=== PATIENT | male | born 1995 | race Caucasian/White ===

== ENCOUNTER 2016-12-09 16:33 | Emergency (ER) | payer OTHER ==
[2016-12-09] MEDS ORDERED: NS 1,000 ML IV ONE (17:24)
[2016-12-09] MEDS ORDERED: HYDROmorphONE/DILAUDID 1 MG/ML INJ IVP ONE (17:24)
[2016-12-09] MEDS ORDERED: ONDANSETRON 4 MG/2 ML VIAL IVP ONE (17:24)
[2016-12-09] MEDS ORDERED: ACETAMINOPHEN 500 MG TAB PO ONE (17:25)
--- NOTE | 2016-12-09 17:30 | EDPHY ---
H & P Stated Complaint: Jones teeth out this morning;also has sinus infection;?sent for IV antibx Time Seen by Provider: 12/09/16 16:57 HPI/ROS: CHIEF COMPLAINT: Facial pain HISTORY OF PRESENT ILLNESS: The patient is a 21-year-old man who is sent from his primary care doctor's office. He states that he has had a head cold for the last 2 weeks that coalesced into significant right frontal facial pain 1 week ago. He then went johnny diving on Tuesday and had a big flush of water into his sinuses that increased his pain severely. He then saw a dentist this morning at 7:00 a.m. who removed his four wisdom teeth. He presented to Dr. Parker is office complaining of severe pain. He had a low-grade fever. Dr. Olson sent him here for pain control and antibiotics and CT scan. He was given amoxicillin and Vicodin by his dentist but he has not yet taken it. REVIEW OF SYSTEMS: Constitutional: denies: chills, fever, recent illness, recent injury EENTM: See HPI Respiratory: denies: cough, shortness of breath Cardiac: denies: chest pain, irregular heart rate, lightheadedness, palpitations Gastrointestinal/Abdominal: denies: abdominal pain, diarrhea, nausea, vomiting, blood streaked stools Genitourinary: denies: dysuria, frequency, hematuria, pain Musculoskeletal: denies: joint pain, muscle pain Skin: denies: lesions, rash, jaundice, bruising Neurological: denies: headache, numbness, paresthesia, tingling, dizziness, weakness Hematologic/Lymphatic: denies: blood clots, easy bleeding, easy bruising Immunologic/allergic: denies: HIV/AIDS, transplant EXAM: GENERAL: Well-appearing, well-nourished and in no acute distress. HEAD: Atraumatic, normocephalic. EYES: Pupils equal round and reactive to light, extraocular movements intact, sclera anicteric, conjunctiva are normal. ENT: Mild facial swelling, right sinus tenderness, TMs normal, nares patent, minimal bleeding from wisdom tooth removal . Moist mucous membranes. NECK: Normal range of motion, supple without lymphadenopathy or JVD. LUNGS: Breath sounds clear to auscultation bilaterally and equal. No wheezes rales or rhonchi. HEART: Regular rate and rhythm without murmurs, rubs or gallops. ABDOMEN: Soft, nontender, normoactive bowel sounds. No guarding, no rebound. No masses appreciated. BACK: No CVA tenderness, no spinal tenderness, step-offs or deformities EXTREMITIES: Normal range of motion, no pitting or edema. No clubbing or cyanosis. NEUROLOGICAL: Cranial nerves II through XII grossly intact. Normal speech, normal gait. 5/5 strength, normal movement in all extremities, normal sensation PSYCH: Normal mood, normal affect. SKIN: Warm, dry, normal turgor, no visible rashes or lesions. Source: Patient Exam Limitations: No limitations - Personal History Current Tetanus Diphtheria and Acellular Pertussis (TDAP): Yes - Medical/Surgical History Hx Asthma: No Hx Chronic Respiratory Disease: No Hx Diabetes: No Hx Cardiac Disease: No Hx Renal Disease: No Hx Cirrhosis: No Hx Alcoholism: No - Family History Significant Family History: No pertinent family hx - Social History Smoking Status: Never smoked Alcohol Use: Sober Drug Use: None Constitutional: Initial Vital Signs Temperature (C) 37.8 C 12/09/16 16:41 Heart Rate 87 12/09/16 16:41 Respiratory Rate 18 12/09/16 16:41 Blood Pressure 124/81 H 12/09/16 16:41 O2 Sat (%) 95 12/09/16 16:41 O2 Delivery Mode Room Air Allergies/Adverse Reactions: No Known Allergies Allergy (Unverified 12/09/16 16:40) Home Medications: Medication Instructions Recorded Amoxicillin Trihydrate [Amoxil] 12/09/16 Amoxicillin/Clavulanate Pot 875 mg PO BID #14 tab 12/09/16 [Augmentin 875Mg] Hydrocodone/APAP 5/325 [[place] 1 each PO 12/09/16 5/325 (*)] oxyCODONE/APAP 5/325 [Percocet 1 - 2 tab PO Q4H PRN #10 tab 12/09/16 5/325 (*)] Medical Decision Making ED Course/Re-evaluation: 6:[address] p[address] we discussed the CT results. The I will switch the patient from amoxicillin to Augmentin. His 1st dose given here. His pain is much better. I will treat him also Toradol and Afrin. We discussed treatment at home and follow-up. We discussed indications for returning. Differential Diagnosis: Partial list of the Differential diagnosis considered include but were not limited to; sinusitis, headache, dental pain and although unlikely based on the history and physical exam, I also considered sepsis, intracranial infection , fracture. I discussed these differential diagnoses and the plan with the patient as well as the usual and expected course. The patient understands that the diagnosis is provisional and that in medicine we are not always correct and that further workup is often warranted. Usual and customary warnings were given. All of the patient's questions were answered. The patient was instructed to return to the emergency department should the symptoms at all worsen or return, otherwise to followup with the physician as we discussed. - Data Points Laboratory Results: Laboratory Results 12/09/16 17:30 12/09/16 17:30 Medications Given: Discontinued Medications Acetaminophen (Tylenol) 1,000 mg PO EDNOW ONE Stop: 12/09/16 17:26 Last Admin: 12/09/16 18:22 Dose: 1,000 mg Amoxicillin/Clavulanate Potassium (Augmentin 875mg) 875 mg PO EDNOW ONE PRN Reason: Protocol Stop: 12/09/16 18:40 Last Admin: 12/09/16 18:49 Dose: 875 mg Hydromorphone HCl (Dilaudid) 1 mg IVP EDNOW ONE Stop: 12/09/16 17:25 Last Admin: 12/09/16 17:39 Dose: 1 mg Sodium Chloride (Ns) 1,000 mls @ 0 mls/hr IV ONCE ONE; Wide Open PRN Reason: Protocol Stop: 12/09/16 17:25 Last Admin: 12/09/16 17:39 Dose: 1,000 mls Ketorolac Tromethamine (Toradol) 30 mg IVP EDNOW ONE Stop: 12/09/16 18:39 Last Admin: 12/09/16 18:49 Dose: 30 mg Ondansetron HCl (Zofran) 4 mg IVP EDNOW ONE Stop: 12/09/16 17:25 Last Admin: 12/09/16 17:39 Dose: 4 mg Oxymetazoline HCl (Afrin Nasal [place]) 2 sprays [place] EDNOW ONE Stop: 12/09/16 18:41 Last Admin: 12/09/16 18:49 Dose: 2 sprays Departure - Departure Disposition: Home, Routine, Self-Care Clinical Impression: Right maxillary sinusitis Condition: Fair Instructions: Sinusitis (ED) Additional Instructions: Continue to use Afrin twice a day as discussed. Discontinue amoxicillin. Use Vicodin or Percocet not both. Referrals: NONE *PRIMARY CARE P,. [Primary Care Provider] - 1-2 days without fail Stand Alone Forms: Statement of Treatment Prescriptions: Amoxicillin/Clavulanate Pot [Augmentin 875Mg] 875 mg PO BID #14 tab oxyCODONE/APAP 5/325 [Percocet 5/325 (*)] 1 - 2 tab PO Q4H PRN #10 tab PRN Reason: Pain, Severe
[2016-12-09 17:43] LABS: % IMMATURE GRANULYOCYTES 0.6 % (0.0-1.1); ABSOLUTE IMMATURE GRANULOCYTES 0.13 10^3/uL (0.00-0.10); ADD DIFF? NO; ADD MORPH? NO; ADD SCAN? NO; ATYPICAL LYMPHOCYTE FLAG 10 (0-99); FRAGMENT RBC FLAG 0 (0-99); HEMATOCRIT 48.2 % (40.0-51.0); HEMOGLOBIN 16.3 g/dL (13.7-17.5); LEFT SHIFT FLG 0 (0-99); LIPEMIA HEMOLYSIS FLAG 90 (0-99); MEAN CELL HEMOGLOBIN 28.8 pg (27.9-34.1); MEAN CELL HEMOGLOBIN CONCENTR. 33.8 g/dL (32.4-36.7); MEAN CELL VOLUME 85.2 fL (81.5-99.8); MEAN PLATELET VOLUME 9.8 fL (8.7-11.7); PLATELET CLUMPS FLAG 0 (0-99); PLATELET COUNT 301 10^3/uL (150-400); RED BLOOD CELL COUNT 5.66 10^6/uL (4.40-6.38); RED CELL DISTRIBUTION WIDTH 13.1 % (11.5-15.2)
[2016-12-09 18:08] LABS: ANION GAP 19 mEq/L (8-16); CALCIUM 10.3 mg/dL (8.5-10.4); CARBON DIOXIDE 22 mEq/l (22-31); CHLORIDE 99 mEq/L (97-110); GLOMERULAR FILTRATION RATE > 60; GLUCOSE 109 mg/dL (70-100); POTASSIUM 4.6 mEq/L (3.5-5.2); SODIUM 140 mEq/L (134-144)
[2016-12-09] MEDS ORDERED: KETOROLAC 30 MG/1 ML SDV IVP ONE (18:38)
[2016-12-09] MEDS ORDERED: AMOXICILLIN/CLAVULANATE POT 875/125 MG TAB PO ONE (18:39)
[2016-12-09] MEDS ORDERED: OXYMETAZOLINE 30 ML NASAL SPRAY EACHNARE ONE (18:40)
[2016-12-09 19:11] VITALS: BP 148/76; PULSE 81; RESP 15; TEMP 98.8; O2SAT 98
== END 2016-12-09 19:10 | disposition home or self-care (01) ==
PROC: 3E0337Z Introduction of Electrolytic and Water Balance Substance into Peripheral Vein, Percutaneous Approach (ICD-10-PCS; principal; 2016-12-09)
DX: J32.0 Chronic maxillary sinusitis (principal); E86.9 Volume depletion, unspecified
CPT/HCPCS: 96374; J1170; J1885; J2405